=== PATIENT | female | born 1955 | race Caucasian/White ===

== ENCOUNTER 2016-07-05 12:17 | Inpatient (IN) | payer OTHER ==
[~2016-07-05] VITALS: Ht 149.9 cm; Wt 52.2 kg
[2016-07-05 12:52] LABS: HEMOGLOBIN 13.6 gm/dl (12.3-15.3); RED BLOOD COUNT 4.57 M/UL (4.00-5.10)
[2016-07-05 13:12] LABS: BUN/CREATININE RATIO 20 (0-10)
[2016-07-05] MEDS ORDERED: TOPROL XL100 MG PO (20:02)
[2016-07-05] MEDS ORDERED: NORVASC 5 MG TAB5 MG PO (20:03)
[2016-07-06 07:08] LABS: HEMOGLOBIN 11.8 gm/dl (12.3-15.3)
[2016-07-06 07:15] LABS: BUN/CREATININE RATIO 18 (0-10)
[2016-07-06 07:29] LABS: RED BLOOD COUNT 3.98 M/UL (4.00-5.10); WHITE BLOOD COUNT 10.6 K/UL (4.5-11.0)
[2016-07-07 06:55] LABS: HEMOGLOBIN 12.2 gm/dl (12.3-15.3); RED BLOOD COUNT 4.12 M/UL (4.00-5.10)
[2016-07-07 06:56] LABS: WHITE BLOOD COUNT 6.7 K/UL (4.5-11.0)
[2016-07-07 07:25] LABS: BUN/CREATININE RATIO 16 (0-10)
[2016-07-07] MEDS ORDERED: FLAGYL500 MG PO (09:38)
[2016-07-07] MEDS ORDERED: ZOFRAN4 MG PO (09:47)
== END 2016-07-07 10:14 | disposition home or self-care (01) | DRG 373 ==
LOC: OPSV 12:17 → MED SURG 4 18:51 → OPSV 19:39 → MED SURG 4 19:40
PROVIDERS: Physician Assistant; ADMIT Internal Medicine
DX: A04.7 Enterocolitis due to Clostridium difficile (principal); E86.0 Dehydration; E87.6 Hypokalemia; R11.2 Nausea with vomiting, unspecified; D51.0 Vitamin B12 deficiency anemia due to intrinsic factor deficiency; I10 Essential (primary) hypertension; E78.5 Hyperlipidemia, unspecified; J45.909 Unspecified asthma, uncomplicated; K21.9 Gastro-esophageal reflux disease without esophagitis; M81.0 Age-related osteoporosis without current pathological fracture; E55.9 Vitamin D deficiency, unspecified; L90.0 Lichen sclerosus et atrophicus; N95.2 Postmenopausal atrophic vaginitis; N95.1 Menopausal and female climacteric states; Z85.42 Personal history of malignant neoplasm of other parts of uterus; Z79.899 Other long term (current) drug therapy; Z88.5 Allergy status to narcotic agent; Z90.710 Acquired absence of both cervix and uterus; Z98.890 Other specified postprocedural states; Z82.49 Family history of ischemic heart disease and other diseases of the circulatory system
CPT/HCPCS: 36415; 80048; 85025; 87040; 96360; 96361; J2405; J3370; J7030; J7050; Q9962